=== PATIENT | female | born 1995 | race Hispanic/Latino ===

== ENCOUNTER → 2018-09-22 12:27 | Outpatient (CLI) | payer OTHER, MEDICAID, SELFPAY ==
--- NOTE | 2018-09-22 | DI.US.S_ITS ---
PROCEDURE: US OB <= 14 WEEKS FETUS INDICATIONS: INITAL SIZE AND DATES OUTSIDE/PRIOR DATING DATA: Last menstrual period (LMP): 07/26/18. LMP-based estimated date of delivery (LUCIUS): 05/02/19. First dating scan (date and location): 09/22/18. Estimated date of delivery (LUCIUS) from first dating scan: 04/29/19. TECHNIQUE: Real-time scanning was performed of the fetus and maternal pelvic organs, with image documentation. Endovaginal scanning was also performed to better visualize the fetus and maternal ovaries. COMPARISON: None. FINDINGS: Embryo: Raymer-rump length measures 21 mm corresponding to 8 weeks 5 days. Heart rate measures 175 beats per minute. Measurement variability in dating: +/- 4 weeks by LMP, +/- 7 days by mean sac diameter (use before 6 weeks gestation if crown-rump length not able to be measured), +/- 5 days by crown-rump length (up to 8 weeks 6 days gestation), +/- 7 days by crown-rump length (up to 13 weeks 6 days gestation). Maternal organs: Ovaries within normal limits. Limited images through the kidneys demonstrate no hydronephrosis. IMPRESSION: 8 week 5 day single living IUP. Dictated by: Cruz Payne A Interpreted: Mavis Golden MD on 09/22/2018 at 15:06 Approved by: Mavis Golden M.D. on 09/22/2018 at 16:48
[2018-09-22 13:38] LABS: Appearance Urine UA SL CLOUDY; Bilirubin Urine UA NEGATIVE (NEGATIVE); Color Urine UA YELLOW; Glucose Urine UA NEGATIVE (Negative); Ketones Urine UA NEGATIVE (NEGATIVE); Leukocyte Esterase Urine UA NEGATIVE (NEGATIVE); Nitrite Urine UA NEGATIVE (Negative); Occult Blood Urine UA NEGATIVE (Negative); Protein Urine UA TRACE (Negative); Specific Gravity Urine UA 1.015 (1.000-1.035); Urobilinogen Urine UA 0.2 E.U./dL (0.2); pH Urine UA 8.5 (4.5-8.0)
[2018-09-22 14:01] LABS: Add Manual Diff / Slide Review NO; Basophils Absolute Auto 0 /uL (0-100); Basophils Percent Auto 0.2 % (0-2); Eosinophils Absolute Auto 500 /uL (0-450); Eosinophils Percent Auto 5.1 % (2-4); Hemoglobin 13.2 g/dL (12.0-16.0); Lymphocytes Absolute Auto 1700 /uL (1100-4500); Lymphocytes Percent Auto 18.1 % (25-40); Mean Corpuscular HGB Conc 34.7 % (30-36); Mean Corpuscular Hemoglobin 30.7 PG (26-34); Mean Corpuscular Volume 88.5 fL (80-100); Monocytes Absolute Auto 800 /uL (0-900); Monocytes Percent Auto 8.2 % (3-14); Neutrophils Absolute Auto 6600 /uL (1500-7000); Neutrophils Percent Auto 68.4 % (50-75); Platelet Count 289 X10^3/uL (150-400); Red Cell Distribution Width 13.1 % (11.6-14.8); White Blood Cell Count 9.6 X10^3/uL (4.5-11.0)
[2018-09-22 15:17] LABS: Hepatitis B Surface Antigen NEGATIVE s/c (NEGATIVE); Rubella Antibody IgG 27.3 IU/mL (>15)
[2018-09-22 15:35] LABS: HIV 1 and 2 Antibody NEGATIVE (NEGATIVE); Hep C Virus Ab w/Reflex Quant NEGATIVE s/c (NEGATIVE)
[2018-09-25 08:15] LABS: RPR Screen Nonreactive (Nonreactive)
== END ==
PROVIDERS: PCP Specialist; Visit Provider Physician Assistant
DX: Z34.81 Encounter for supervision of other normal pregnancy, first trimester (principal); Z3A.08 8 weeks gestation of pregnancy
CPT/HCPCS: 76801; 80055; 81003; 86703; 86787; 86803; 86850; 86900; 86901; 87086

== ENCOUNTER → 2018-12-21 11:30 | Outpatient (CLI) | payer OTHER, SELFPAY ==
--- NOTE | 2018-12-21 11:32 | DI.US.S_ITS ---
PROCEDURE: US OB >= 14 WEEKS FETUS INDICATIONS: ANATOMY OUTSIDE/PRIOR DATING DATA: Last menstrual period (LMP): 07/26/18. LMP-based estimated date of delivery (LUCIUS): 05/02/19 First dating scan (date and location): 09/22/18. Estimated date of delivery (LUCIUS) from first dating scan: 04/29/19. TECHNIQUE: Real-time scanning was performed of the fetus, with image documentation and biometric measurements. Endovaginal scanning: No COMPARISON: [facility], [facility], US OB > 14 WEEKS, 11/23/2018, 14:40. FINDINGS: General: A single living intrauterine gestation is present. Presentation: Vertex. Placenta: Placental position is posterior, without previa. Amniotic fluid index: 17.6 cm, normal range is 5-24 cm. heart rate: 145 beats per minute. Maternal cervical canal: 3.5 cm long. Normal lower limit is 2.5 cm. biometrics: Biparietal diameter: 21 weeks 3 days Head circumference: 20 weeks 6 days Abdominal circumference: 21 weeks 4 days Femur length: 22 weeks 3 days Estimated gestational age from initial scan: 21 weeks 4 days Composite gestational age from present scan: 21 weeks 4 days Estimated weight and percentile: 455 g; 59 percentile Measurement variability for biometric dating: +/- 7 days from 14 weeks to 15 weeks 6 days gestation, +/- 10 days from 16 weeks to 21 weeks 6 days gestation, +/- 2 weeks from 22 weeks to 27 weeks 6 days gestation, +/- 3 weeks for 28 weeks gestation or later. weight reference: 4500 g or EFW >90/95% is considered macrosomia or large for gestational age. EFW <10% is small for gestational age. EFW 5% or less is considered intra-uterine growth restriction. Anatomic survey: Neuro: Ventricles are non-dilated at less than 10 mm. Cisterna magna is normal at 3-11 mm. Cerebellum is normal in size and morphology. Nuchal skin fold: Normal at less than 6 mm between 14-21 weeks gestational age. Face: Nose and lips, facial profile are normal. Spine: No evidence for spina bifida. Heart: 4-chambered heart is present, with normal ventricular outflow tracts. Diaphragm: Diaphragm is intact. Stomach: Left-sided stomach is present. Kidneys: No hydronephrosis. Normal is less than 5 mm in 2nd trimester, less than 7 mm in 3rd trimester. Cord: 3-vessel cord has orthotopic insertion. Bladder: Normal in size. Extremities: All 4 extremities identified. IMPRESSION: 1. Single living IUP redemonstrated and interval growth is normal. 2. Normal anatomic survey. Dictated by: Cruz GARCIA Interpreted: Obinna Kirby MD on 12/21/2018 at 13:01 Approved by: Obinna Kirby M.D. on 12/21/2018 at 14:29
[2018-12-26 11:41] LABS: AFP, Serum 54.9 ng/mL; Calc Gestational Age 21.6; Cigarette Smoker N; Donated Egg NOT GIVEN; Donor Egg Age NOT GIVEN; Estriol, Free 1.32 ng/mL; Inhibin A, Dimeric 157 pg/mL; Maternal Ethnicity HISPANIC; Maternal Weight 156 lbs; Number of Fetuses 1; Previous Pregnancy Down Syndro NOT GIVEN; hCG, MoM 1.27; hCG, Serum 22.1 IU/mL
== END ==
PROVIDERS: PCP Specialist; Visit Provider Specialist
DX: Z34.02 Encounter for supervision of normal first pregnancy, second trimester (principal); Z3A.20 20 weeks gestation of pregnancy
CPT/HCPCS: 36415; 76811; 82105; 82677; 84702; 86336

== ENCOUNTER → 2019-01-18 12:49 | Outpatient (CLI) | payer OTHER, SELFPAY ==
[2019-01-18 14:40] LABS: Hemoglobin 12.4 g/dL (12.0-16.0)
[2019-01-18 14:50] LABS: GTT (PREG) 1 Hour PP 50gm Dose 143 mg/dL (76-139)
== END ==
PROVIDERS: PCP Specialist; Visit Provider Specialist
DX: Z34.82 Encounter for supervision of other normal pregnancy, second trimester (principal)
CPT/HCPCS: 36415; 82950; 85014; 85018

== ENCOUNTER → 2019-04-05 14:36 | Outpatient (CLI) | payer OTHER, SELFPAY ==
[2019-04-06 16:06] LABS: Strep Grp B PCR NEG for Grp B Strep
== END ==
PROVIDERS: PCP Specialist; Visit Provider Specialist
DX: Z34.83 Encounter for supervision of other normal pregnancy, third trimester (principal); Z3A.36 36 weeks gestation of pregnancy
CPT/HCPCS: 87653

== ENCOUNTER 2019-04-20 11:08 | Inpatient (IN) | payer OTHER, SELFPAY ==
[2019-04-20] VITALS (9 sets, daily range): BP systolic 89–99; BP diastolic 44–52; PULSE 85–94; RESP 11–18; TEMP 36.1–36.6; O2SAT 97–98
[2019-04-20 12:07] LABS: Add Manual Diff / Slide Review NO; Basophils Absolute Auto 100 /uL (0-100); Basophils Percent Auto 0.9 % (0-2); Eosinophils Absolute Auto 300 /uL (0-450); Eosinophils Percent Auto 2.8 % (2-4); Hematocrit 37.7 % (36-46); Lymphocytes Absolute Auto 1800 /uL (1100-4500); Lymphocytes Percent Auto 19.1 % (25-40); Mean Corpuscular HGB Conc 34.5 % (30-36); Mean Corpuscular Volume 92.7 fL (80-100); Monocytes Absolute Auto 500 /uL (0-900); Monocytes Percent Auto 5.7 % (3-14); Neutrophils Absolute Auto 6700 /uL (1500-7000); Neutrophils Percent Auto 71.5 % (50-75); Platelet Count 212 X10^3/uL (150-400); Red Blood Cell Count 4.06 X10^6/uL (4.0-5.2); Red Cell Distribution Width 13.8 % (11.6-14.8); White Blood Cell Count 9.3 X10^3/uL (4.5-11.0)
--- NOTE | 2019-04-20 12:09 | PM.OBHP.1 ---
OB HPI Date/Time Date of admission: 04/20/19 Date Patient Seen: 04/20/19 Time Patient Seen: 12:10 History of Present Condition Chief complaint: [id number] REPEAT : 2 Para: 1 Estimated Date of Delivery: 04/27/19 Estimated Gestational Age (weeks): 39 Narrative: Christine Euceda is a 23 year old female admitted for repeat section Indications Operative indications ( section): previous uterine surgery History of Present care: good care, initiated at week # (8), number of visits (10) and pounds weight gain (28) Dating criteria: LMP confirmed by 1st trimester US Ultrasounds: normal mid trimester US Obstetrical complications: none Medical complications: none Preadmission Labs Blood type: O (+) positive -: Antibody screen: negative, GBS status: negative, HBsAG: negative, HIV: negative and RPR/VDLR: negative -: Chlamydia screen: not detected and Gonorrhea screen: not detected -: Rubella: immune and Varicella: immune HCAB: negative PAP: Normal Quad screen: Normal 1 hr GTT: 143 3 hr GTT: 1 hr (122), 2 hr (61) and 3 hr (66) Fasting blood glucose: 82 Prior (ies) History: 05/25/2014 39 week gestation female 7 lb 10 oz for failure to progress Evaluation Evaluation Laboratory results: Laboratory Tests 04/20/19 11:45 WBC 9.3 RBC 4.06 Hgb 13.0 Hct 37.7 MCV 92.7 MCH 32.0 MCHC 34.5 RDW 13.8 Plt Count 212 Neut % (Auto) 71.5 Lymph % (Auto) 19.1 L Leslie % (Auto) 5.7 Eos % (Auto) 2.8 Baso % (Auto) 0.9 Neut # (Auto) 6700 Lymph # (Auto) 1800 Leslie # (Auto) 500 Eos # (Auto) 300 Baso # (Auto) 100 PFSH Medical History (Updated 04/20/19 @ 12:14 by Shanice Hansen MD) Asthma (Acute) depression (Acute) Surgical History (Updated 04/20/19 @ 12:14 by Shanice Hansen MD) H/O section (Acute) Social History Smoking Status: Former smoker Social History Smoking Status: Former smoker Meds Home Medications and Allergies Home Medications Medication Instructions Recorded Confirmed Type prenat.vits,mendoza,[id number] 1 tab PO DAILY 09/22/18 09/22/18 History omeprazole 20 mg capsule,delayed 20 mg PO DAILY #30 cap 01/18/19 Rx release Allergies Allergy/AdvReac Type Severity Reaction Status Date / Time iodine AdvReac Mild Hives Verified 09/22/18 12:31 Review of Systems Review of Systems Narrative: Good movement, no contractions and no leakage of fluid. No signs or symptoms of preeclampsia ROS Unobtainable: All systems reviewed & are unremarkable except as noted in HPI and below Exam Vital Signs (past 8 hours): Blood pressure 108/56, pulse of 90, temperature 98.1? Narrative Exam Narrative: HEENT exam within normal limits. Lungs are clear to auscultation percussion. Heart is regular rate and rhythm no S3-S4 or murmurs. Abdomen is gravid. Infant is vertex. Extremities without edema and nontender. Objective Labs Result Diagrams: 04/20/19 11:45 Labs: Laboratory Results - last 24 hr 04/20/19 11:45 WBC 9.3 RBC 4.06 Hgb 13.0 Hct 37.7 MCV 92.7 MCH 32.0 MCHC 34.5 RDW 13.8 Plt Count 212 Neut % (Auto) 71.5 Lymph % (Auto) 19.1 L Leslie % (Auto) 5.7 Eos % (Auto) 2.8 Baso % (Auto) 0.9 Neut # (Auto) 6700 Lymph # (Auto) 1800 Leslie # (Auto) 500 Eos # (Auto) 300 Baso # (Auto) 100 Assessment and Plan Assessment and Plan Assessment and Plan narrative: 39 week gestation with prior section for planned repeat section
[2019-04-20] MEDS: LACTATED RINGERS 1,000 ML 100 ML IV ×3 (12:17→16:00)
[2019-04-20] MEDS: CEFAZOLIN 2 GM/100 ML FROZ.PIGGY IV (14:02)
--- NOTE | 2019-04-20 14:28 | SUR.OPER ---
Supine on Padded OR bed, head on pillow, safety belt at thigh, arms secured on padded arm boards at <90 degrees abduction. Bump under right buttock. Legs uncrossed with pillow under knees, gel pad to heels, tape over blanket to lower legs.
--- NOTE | 2019-04-20 14:45 | SUR.OPER ---
FHR 134 Alive Girl TOB at 14:27 Placenta and cord blood x 2 given to OB nurse
--- NOTE | 2019-04-20 15:05 | PM.OP.1 ---
Operative Date/Time/Diagnoses Date of procedure: 04/20/19 Time of procedure: 15:06 Pre-op diagnosis: 39 week gestation with prior section Post-op diagnosis: same Procedure & Clinicians Procedure: Repeat low-transverse section Same procedure as scheduled: Yes Indications: Prior section at term requesting repeat section Surgeon: Shanice Hansen Assistant Corporation Counsel: Denise Trevizo Click Yes if Unassisted: No Anesthesia Type: Spinal Operative Notes Findings: Normal tubes ovaries and uterus with viable female weighing 6 lb 14 oz Closure Type: primary Specimen(s): none sent Applied: catheter (Arias) Estimated Blood Loss (mL): 400 Blood products transfused: none Procedure in detail: The patient was brought to the operating room where she underwent a spinal for anesthesia. She was placed in a supine position with a left lateral tilt. A Arias catheter was placed. Pulsatile stockings were placed and functional throughout the case. 2 g of Ancef were given IV prior to the incision. Warming was in place. The patient was prepped and draped in usual sterile fashion. A low transverse incision was made through the prior incision with a scalpel and the incision was carried down to the fascial layer which was incised transversely with scissors. The midline attachments are superiorly and inferiorly. Some bleeding was controlled Bovie. The rectus muscles were in the midline and the peritoneal incision was made with no damage to internal structures. The peritoneum was incised and superiorly and inferiorly. Bladder blade was placed and a bladder flap was developed and the bladder held away from the lower uterine segment. An incision was made in the uterus with the scalpel and the incision was extended with stretching. The head was elevated out of the abdomen and with fundal pressure the baby was delivered. The infant was bulb suctioned for clear fluid and handed off to the warmer. Cord blood was collected. The placenta delivered spontaneously with traction. The uterus was cleaned with clean laps. The uterine incision was closed in 2 layers of 0 chromic suture the first a running locking layer the second an imbricating layer. The bladder peritoneum was repaired with 2-0 Polysorb suture. The gutters were cleaned of any remaining fluids and ovaries and tubes were observed to be normal. Adequate hemostasis was noted. The perineum was closed with 2-0 Polysorb suture. The fascia layer was closed with 0 Polysorb suture with 2 stitches. The incision was irrigated and adequate hemostasis noted. The incision was closed with interrupted 3-0 Polysorb sutures and then a subcuticular stitch of 4-0 Polysorb suture. Steri-Strips were placed. The uterus was massaged to remove any clots. The patient went to recovery room in good condition. Counts of instruments and sponges were correct. Complications: none Post-operative Condition: stable Disposition: other ( Center) Plan for aftercare: Routine post section
--- NOTE | 2019-04-20 15:46 | SUR.PHASEI ---
pt transferred to center in stable condition, vss. Bedside report given to receiving RN at that time. Pt at bedside upon arrival. Transferred care of pt to receiving RN at that time.
[2019-04-20] MEDS: KETOROLAC 30 MG/ML VIAL IV ×2 (16:20→22:11)
[2019-04-20] MEDS: ONDANSETRON 4 MG/2 ML INJ IV (16:27)
[2019-04-20] MEDS: LANOLIN OINT 7 GM 1 APPLIC TOP (16:27)
[2019-04-20] MEDS: OXYCODONE IR 10 MG TABLET PO ×2 (18:26→22:17)
[2019-04-21] MEDS: LACTATED RINGERS 1,000 ML 100 ML IV (01:26)
[2019-04-21] MEDS: OXYCODONE IR 10 MG TABLET PO ×4 (02:07→20:47)
[2019-04-21] MEDS: KETOROLAC 30 MG/ML VIAL IV ×2 (05:43→11:37)
[2019-04-21] MEDS: NALBUPHINE 20 MG/ML AMPUL 5 MG IV (05:55)
[2019-04-21 07:12] LABS: Add Manual Diff / Slide Review NO; Basophils Absolute Auto 0 /uL (0-100); Basophils Percent Auto 0.3 % (0-2); Eosinophils Absolute Auto 200 /uL (0-450); Eosinophils Percent Auto 2.8 % (2-4); Hematocrit 34.6 % (36-46); Hemoglobin 11.8 g/dL (12.0-16.0); Lymphocytes Absolute Auto 1500 /uL (1100-4500); Lymphocytes Percent Auto 18.6 % (25-40); Mean Corpuscular HGB Conc 34.3 % (30-36); Mean Corpuscular Hemoglobin 31.8 PG (26-34); Mean Corpuscular Volume 92.9 fL (80-100); Monocytes Absolute Auto 700 /uL (0-900); Monocytes Percent Auto 8.8 % (3-14); Neutrophils Absolute Auto 5800 /uL (1500-7000); Neutrophils Percent Auto 69.5 % (50-75); Platelet Count 188 X10^3/uL (150-400); Red Blood Cell Count 3.72 X10^6/uL (4.0-5.2); Red Cell Distribution Width 13.9 % (11.6-14.8); White Blood Cell Count 8.4 X10^3/uL (4.5-11.0)
--- NOTE | 2019-04-21 08:06 | PM.OBPN.1 ---
Subjective - OB Subjective Patient comments: no complaints and pain well controlled [place] baby status: doing well [place] feeding status: exclusively breast feeding Date Patient Seen: 04/21/19 Time Patient Seen: 08:06 Interval history: Patient is postoperative day 1. Repeat low-transverse section doing well Exam Vital Signs (past 8 hours): Blood pressure 96/49, pulse of 89, temperature 99.3? Oxygen Delivery Method Room Air Narrative Exam Narrative: Abdomen is soft, and nontender. Uterus is firm, at U, nontender. Dressing is clean, dry, intact. Normal lochia. Extremities without edema and nontender Objective Labs Result Diagrams: 04/21/19 06:30 Labs: Laboratory Results - last 24 hr 04/20/19 04/20/19 04/21/19 11:45 11:45 06:30 WBC 9.3 8.4 RBC 4.06 3.72 L Hgb 13.0 11.8 L Hct 37.7 34.6 L MCV 92.7 92.9 MCH 32.0 31.8 MCHC 34.5 34.3 RDW 13.8 13.9 Plt Count 212 188 Neut % (Auto) 71.5 69.5 Lymph % (Auto) 19.1 L 18.6 L Young % (Auto) 5.7 8.8 Eos % (Auto) 2.8 2.8 Baso % (Auto) 0.9 0.3 Neut # (Auto) 6700 5800 Lymph # (Auto) 1800 1500 Young # (Auto) 500 700 Eos # (Auto) 300 200 Baso # (Auto) 100 0 Blood Type O Positive Antibody Screen Negative Assessment & Plan Assessment and Plan (1) Delivery by section: Status: Acute Current Visit: Yes Plan day: 1 plan OB: routine postop care Time Spent With Patient Time: Total time spent is greater than 50% in coordination of care (as documented) at patient's floor/unit and/or counseling patient: Time with patient: less than 15 minutes
[2019-04-21] MEDS: DOCUSATE 250 MG CAPSULE PO (08:59)
[2019-04-21] MEDS: IBUPROFEN 600 MG TABLET PO (18:12)
[2019-04-22] MEDS: IBUPROFEN 600 MG TABLET PO ×2 (00:04→08:11)
[2019-04-22] MEDS: OXYCODONE IR 10 MG TABLET PO ×4 (00:50→11:59)
[2019-04-22] MEDS: DOCUSATE 250 MG CAPSULE PO (08:11)
--- NOTE | 2019-04-22 10:57 | PM.OBDS.1 ---
Discharge Providers Provider Date of admission: 04/20/19 11:08 Discharge Date: 04/22/19 Primary care physician: Shanice Hansen MD Consults: 04/20/19 15:44 Consult to [employer] Routine Comment: Discharge provider: Shanice Hansen MD Summary Hospital Course Date Patient Seen: 04/22/19 Time Patient Seen: 10:57 Procedures: Repeat low transverse section Peripartum Data Infant Delivery Method: Section Procedures: Repeat low-transverse section complications: none 1: Gender: Female Disposition of : home Discharge Diagnosis (1) Delivery by section: Status: Acute Status at Discharge Cognitive/behavioral status at discharge: oriented Functional status at discharge: independent ambulation Overall status at discharge: patient is progressing back to baseline Time Spent with Patient Time attestation: Total time spent providing and/or coordinating discharge services: Time spent: Less than 30 minutes Objective Labs Result Diagrams: 04/21/19 06:30 Exam Vital Signs (past 8 hours): Blood pressure 101/56, pulse of 90, temperature 98.8? Oxygen Delivery Method Room Air Narrative Exam Narrative: Abdomen is soft, nontender. Uterus is firm, at U, nontender. Dressing is clean, dry, intact. Minimal lochia. Extremities without edema and nontender. Patient's blood type is O positive and she is rubella immune Discharge Plan Discharge Plan Patient Disposition: Home Discharge Med Rec/Prescriptions Prescriptions: New ibuprofen 600 mg Tablet 600 mg PO Q6HR PRN (Reason: As Needed For Fever/Mild Pain) Qty: 30 RF: 0 docusate sodium 250 mg Capsule 250 mg PO DAILY Qty: 20 RF: 0 oxycodone 10 mg Tablet 10 mg PO Q4HR PRN (Reason: Pain, Severe (7-10)) Qty: 30 RF: 0 Continued prenat.vits,mendoza,gxo-[id number] tablet 1 tab PO DAILY RF: 0 omeprazole 20 mg capsule,delayed release(DR/EC) 20 mg PO DAILY Qty: 30 RF: 3 Follow up/Referrals: Shanice Hansen MD [Primary Care Provider] - 1 Week (Incision check) Provider Discharge Instructions Diet: Regular Activity: Nothing in vagina for 4 weeks. Do not lift over 20 lb for 6 weeks. Skin/Wound/Dressing Care Report to your healthcare provider any signs of infection, such as:: chills, fever, increased pain and unusual redness Dressing: Leave dressing in place until 1 week exam Discharge Data Primary Care Provider: Shanice Hansen
[2019-04-22 11:20] VITALS: BP 99/52; PULSE 91; RESP 18; TEMP 36.4
[2019-04-22 11:24] VITALS: BP 99/52; PULSE 91; RESP 18; TEMP 36.4
== END 2019-04-22 13:10 | disposition home or self-care (01) | DRG 788 ==
PROVIDERS: Admitting Provider Specialist; PCP Specialist; Visit Provider Specialist
PROC: 10D00Z1 Extraction of Products of Conception, Low, Open Approach (ICD-10-PCS; CPT 59514; principal; 2019-04-20 13:30)
DX: O34.211 Maternal care for low transverse scar from previous cesarean delivery (principal); Z3A.39 39 weeks gestation of pregnancy; Z37.0 Single live birth
CPT/HCPCS: 36415; 59050; 59510; 59514; 85025; 86850; 86900; 86901; J0690; J1885; J2274; J2300; J2405; J2590; J2765; J3010

== ENCOUNTER → 2021-03-19 11:16 | Outpatient (CLI) | payer OTHER, SELFPAY | PROVIDERS: PCP Physician Assistant; Visit Provider Physician Assistant | DX: N39.0 Urinary tract infection, site not specified (principal); R30.0 Dysuria | CPT/HCPCS: 87077; 87086; 87186 ==

== ENCOUNTER → 2025-06-06 15:03 | Outpatient (CLI) | payer OTHER, SELFPAY ==
[2025-06-06 15:30] LABS: Add Manual Diff / Slide Review NO; Hematocrit 36.7 % (36-46); Hemoglobin 12.8 g/dL (12.0-16.0); Lymphocytes Absolute Auto 1700 /uL (1100-4500); Mean Corpuscular HGB Conc 35.0 % (30-36); Mean Corpuscular Hemoglobin 31.2 PG (26-34); Mean Corpuscular Volume 89.1 fL (80-100); Platelet Count 245 X10^3/uL (150-400)
[2025-06-07 16:05] LABS: HIV 1 & 2 Ab/Ag 4th Gen Combo NEGATIVE (NEGATIVE); Hep C Virus Ab w/Reflex Quant NEGATIVE s/c (NEGATIVE); Hepatitis B Surface Antigen NEGATIVE s/c (NEGATIVE)
== END ==
PROVIDERS: PCP Obstetrics & Gynecology; Referring Provider Obstetrics & Gynecology; Visit Provider Obstetrics & Gynecology
DX: Z34.80 Encounter for supervision of other normal pregnancy, unspecified trimester (principal)
CPT/HCPCS: 36415; 80055; 86787; 86803; 86850; 86900; 86901; 87086; 87389

== ENCOUNTER → 2025-06-20 14:16 | Outpatient (CLI) | payer OTHER, SELFPAY ==
[2025-06-20 15:22] LABS: Natera Collection Specimen Collected
== END ==
PROVIDERS: PCP Obstetrics & Gynecology; Referring Provider Obstetrics & Gynecology; Visit Provider Obstetrics & Gynecology
DX: Z34.81 Encounter for supervision of other normal pregnancy, first trimester (principal); Z36.0 Encounter for antenatal screening for chromosomal anomalies
CPT/HCPCS: 36415

== ENCOUNTER → 2025-07-27 13:52 | Outpatient (CLI) | payer MEDICAID, SELFPAY | PROVIDERS: PCP Obstetrics & Gynecology; Referring Provider Obstetrics & Gynecology; Visit Provider Obstetrics & Gynecology | DX: Z36.0 Encounter for antenatal screening for chromosomal anomalies (principal) | CPT/HCPCS: 36415; 82105 ==